=== PATIENT | female | born 1960 | race Caucasian/White ===

== ENCOUNTER 2016-12-22 18:44 | Emergency (ER) | payer BC ==
--- NOTE | ~2016-12-22 | CR173 ---
[facility]. [facility] A Service of [facility] & [facility] RADIOLOGY TEXT RESULTS PATIENT: REGINALD LU LOCATION: SED : 64 UNIT #: [id number] AGE: [address]: VIGNESH HINOJOSA SEX: F ORDER DR: [id number] [place] [id number] E MR#: [id number] Acc #: [id number] NAME: REGINALD LU. : 1960 SEX: F STUDY DATE/TIME: 12/22/2016 19:06 UNIT: SED ROOM: STUDY DESCRIPTION: CR Knee 3 Views Rt Attending Physician: Paul) Vignesh Hinojosa Ordering Physician: Paul) Vignesh Hinojosa Primary Care Physician: Gene Emmanuel M.D. MEDICAL IMAGING REPORT This report is preliminary unless electronic signature is present. EXAM Right knee, 3 views. HISTORY Knee pain after fall today. FINDINGS AP and lateral projection of the knee shows smooth articular anatomy without indication of fracture or dislocation at the major weight-bearing surface of the knee. There is no indication of radiopaque foreign body about the knee surface or joint effusion. IMPRESSION Normal right knee. Dictated by... Memo Diez M.D. THIS IS AN ELECTRONICALLY VERIFIED REPORT Memo Diez M.D. at 12/23/2016 2:01 PM PEDRO/nina TD: 12/22/2016 22:48 JOB #: [id number] MEDICAL IMAGING REPORT Page 1 of 1
[2016-12-22] MEDS ORDERED: FLEXERIL PO (18:50)
== END 2016-12-22 20:14 | disposition home or self-care (01) ==
LOC: SED 18:44
DX: S80.01XA Contusion of right knee, initial encounter (principal); Z88.1 Allergy status to other antibiotic agents; Z88.2 Allergy status to sulfonamides; Z88.5 Allergy status to narcotic agent; Z91.041 Radiographic dye allergy status; W19.XXXA Unspecified fall, initial encounter; Y92.009 Unspecified place in unspecified non-institutional (private) residence as the place of occurrence of the external cause
CPT/HCPCS: 73562; 99283